=== PATIENT | male | born 1990 | race Caucasian/White ===

== ENCOUNTER → 2020-07-30 | Emergency (ER) | payer MEDICAID ==
[~2020-07-30] VITALS: Ht 167.6 cm; Wt 109.1 kg
[~2020-07-30] MED LIST: BACLOFEN20 M1 PO; OMNICEF300 MG PO; VOLTAREN75 MG PO
[2020-07-30 12:34] VITALS: Ht 167.6 cm; Wt 109.1 kg
[2020-07-30 13:37] VITALS: BP 148/91
[2020-07-30 14:00] LABS: BILIRUBIN NEGATIVE (NEGATIVE); KETONE NEGATIVE (NEGATIVE); NITRITE NEGATIVE (NEGATIVE); UROBILINOGEN NORMAL mg/dL (< 2)
== END | disposition home or self-care (01) ==
LOC: D.ER 12:31
PROVIDERS: Family Medicine
DX: M54.9 Dorsalgia, unspecified (principal)